=== PATIENT | male | born 1965 | race Two or more races ===

== ENCOUNTER → 2020-11-25 08:00 | Outpatient (CLI) | payer OTHER ==
[~2020-11-25 08:00] MED LIST: AMOX-CLAV 875-1 EACH PO; DOLOGEN CAPLET1 EACH PO; IBU600 MG PO; ISENTRESS400 MG PO; LEVAQUIN750 MG PO; MUCINEX DM ER1 EAC1 PO; SUSTIVA600 MG PO; TUSNEL LIQUID178 ML PO; ZESTRIL2.5 MG PO; [UNRECOGNIZED DRUG - OTHER]
== END | disposition home or self-care (01) ==
LOC: PPH VACUNA 08:00
DX: Z23 Encounter for immunization (principal)

== ENCOUNTER 2021-01-06 13:34 | Emergency (ER) | payer OTHER ==
[~2021-01-06] VITALS: Ht 180.3 cm; Wt 87.5 kg
[2021-01-06] MEDS ORDERED: NORFLEX100MG PO (15:29)
[2021-01-06] MEDS ORDERED: KETO10TA2 PO (15:29)
== END 2021-01-06 15:44 | disposition home or self-care (01) ==
LOC: ER 13:34
DX: M54.5 Low back pain (principal)